=== PATIENT | female | born 1955 | race Caucasian/White ===

== ENCOUNTER 2020-11-12 09:58 | Emergency (ER) | payer MEDICARE, MEDICAID, SELFPAY ==
[2020-11-12 10:06] VITALS: BP 172/88; PULSE 69; RESP 16; TEMP 35.8; O2SAT 98; BMI 38.7
--- NOTE | 2020-11-12 10:07 | XRR_ITS ---
PROCEDURE INFORMATION: Exam: XR Left Foot Complete Exam date and time: 11/12/2020 10:10 AM Age: 65 years old Clinical indication: Injury or trauma; Fall; Sprain or strain; Foot; Left; Additional info: Fall left foot pain TECHNIQUE: Imaging protocol: XR Left foot. Views: 3 or more views. COMPARISON: No relevant prior studies available. FINDINGS: The exact location of the patient's symptoms are not known at the time of dictation. Bones/joints: No acute bony injury or malalignment in the visualized left foot. Calcaneal spur. Soft tissues: Mild soft tissue swelling. No radiopaque foreign body. XR/XR foot LT min 3V* [id number] IMPRESSION: No acute bony injury or malalignment in the visualized left foot.
--- NOTE | 2020-11-12 10:19 | W.ED.EXTPRO ---
HPI - Extremity Problem General: Chief complaint: Extremity Injury, Lower Stated complaint: FALL, PAIN IN LEFT FOOT Time Seen by Provider: 11/12/20 10:06 Source: patient Mode of arrival: wheelchair Limitations: no limitations History of Present Illness: HPI Narrative: 65-year-old female patient presents to the emergency department with left foot pain status post fall. She reports tripped and rolled her left foot last night. She reports pain is increased this morning. She is brought to the emergency room with her daughter. She denies any further injuries, denies hitting her head or complaints of neck pain upon exam. MD Complaint: extremity pain (left foot) Pain Consistency: intermittent Location: left and lower extremity Quality: aching and dull Radiation: none Relieving factors: immobilization and rest Exacerbating factors: weight bearing and walking Associated symptoms: Reports no associated symptoms; Deny chest pain, fever(s) or rash Review of Systems General: Reports: 10 or more systems reviewed and unremarkable except in HPI and below Const: Denies: fever(s), chills or diaphoresis Eyes: Denies: blurry vision or eye redness ENMT: Denies: throat pain, dental pain or disequilibrium Card: Denies: chest pain, palpitations or irregular heart rhythm Resp: Denies: dyspnea, productive cough, non-productive cough or wheezing GI: Denies: abdominal pain, nausea or vomiting : Denies: difficulty voiding or dysuria Musc: Reports: extremity pain (left lateral foot); Denies: neck pain or back pain Skin/Breast: Denies: rash or pruritus Neuro: Denies: headache(s), weakness in extremities or behavioral changes Psych: Denies: anxiety or depression Tin/Lymph: Denies: easy bruising Physical Exam Const: COMMON NORMALS: no acute distress, patient oriented x3, healthy appearing and alert GENERAL APPEARANCE: cooperative, comfortable and well hydrated HENMT: COMMON NORMALS: normocephalic, Normal external nose present and moist oral mucous membranes HEAD & SCALP: normocephalic NOSE: Normal external nose present Eye: COMMON NORMALS: Equal, round and reactive pupils present and EOMs intact bilaterally GENERAL EYE: appearance normal, both eyes and all related structures PUPIL: Yes Equal, round and reactive pupils present Neck/C-Spine: COMMON NORMALS: full ROM, no lymphadenopathy and supple GENERAL: Yes normal visual inspection and Yes trachea midline CERVICAL SPINE: Yes cervical ROM normal, No pain with cervical ROM, No Cervical spine tenderness and No Paracervical muscle tenderness Lymph: LYMPHATIC: no lymphadenopathy noted Chest: COMMONS NORMALS: normal inspection of the chest Resp: COMMON NORMALS: normal respiratory effort and clear to auscultation bilaterally AUSCULTATION: clear to auscultation bilaterally Cardio: COMMON NORMALS: regular rhythm, S1 normal heart sound present and S2 normal heart sound present RHYTHM: regular rhythm HEART SOUNDS: S1 normal heart sound present and S2 normal heart sound present GI: COMMON NORMALS: Soft to palpation and non-tender INSPECTION: Yes normal to inspection PALPATION: Yes Soft to palpation : COMMON NORMALS: Yes no CVA tenderness BLADDER/KIDNEY EXAM: Yes no CVA tenderness Back/Pelvis: COMMON NORMALS: no CVA tenderness and thoracic and lumbar spine normal to inspection Extremity: COMMON NORMALS: normal to inspection, full ROM and capillary refill normal GENERAL: Yes normal exam except as noted LEFT LOWER EXTREMITY: Yes foot & digits Left foot and digits: Yes inspection (slight edema to the lateral foot), Yes palpation (pain to the proximal left lateral foot), Yes ROM (full dorsiflexion and extension left ankle and foot) and Yes neurovascular exam (distally intact) Neuro: COMMON NORMALS: patient oriented x3 and no focal motor deficits SENSORIUM/ORIENTATION: Yes alert Psych: COMMON NORMALS: mental status grossly normal, Normal thought process present and cooperative ACTIVITY/MOTOR BEHAVIOR: Yes appropriate eye contact THOUGHT PROCESS: Normal thought process present Skin: COMMON NORMALS: no rashes or lesions noted and turgor normal GENERAL SKIN EXAM: no rashes or lesions noted and turgor normal Procedures Orthopedic Splinting/Casting Injury #1: Lower Extremity Injury Location: lower leg Lower Extremity Immobilizer: posterior splint and Eliseo wrap Other Orthopedic Equipment: crutches Course ED course: 65-year-old female patient presents to the emergency department with left lateral foot pain after sustaining a fall last night. She reports pain is increased this morning. Point tenderness to the left lateral base MTP, fifth, question small avulsion fracture, radiology interpretation did not appreciate fracture, splint placed patient reports improvement with pain. Advised continued follow-up with Dr. Lindquist, podiatry this week. Vital Signs: Vital signs: Vital Signs Temperature 96.5 F L 11/12/20 10:06 Pulse Rate 69 12/26/20 10:06 Respiratory Rate 16 11/12/20 10:06 Blood Pressure 172/88 11/12/20 10:06 Pulse Oximetry 98 11/12/20 10:06 MDM - Extremity (Nontraumatic) Imaging Data^: Xray Ortho: My impression: Fifth MTP, base avulsion fracture, radiology interpretation pending. Discharge Plan Discharge Patient Disposition: Home Clinical Impression: Foot fracture, left Qualifiers: Encounter type: initial encounter Fracture type: closed Qualified Code(s): S92.902A - Unspecified fracture of left foot, initial encounter for closed fracture Metatarsal bone fracture Qualifiers: Encounter type: initial encounter Metatarsal bone: fifth Fracture type: closed Fracture alignment: nondisplaced Laterality: left Qualified Code(s): S92.355A - Nondisplaced fracture of fifth metatarsal bone, left foot, initial encounter for closed fracture Condition: Stable Discharge Orders: Discharge ED (Routine); Ordered 11/12/20 Ordered By: Lyla Nolasco Referrals: Malathi Ash PA [Primary Care Provider] - Discharge Diet: Usual diet Discharge Activity: Limit activity as instructed Patient Instructions: Fractures - Metatarsal, Crutch Instructions (ED), Foot Fracture in Adults (ED), Splint Care (ED) Activity Restrictions/Additional Instructions: Keep left lower extremity elevated to help with swelling and pain, cool compresses will help with pain and swelling, never apply ice directly to the skin. instructional support services director will be contacting you with an appointment for orthopedic specialty/podiatry. Postop shoe will help with pain and swelling, limit weightbearing to the left lower extremity until follow-up with podiatry. May take Tylenol/ibuprofen as needed for pain Coding Level of Care Code ED Manager Ui for Chg Fwd Exam Comprehensive
[2020-11-12] MEDS: acetaminophen 500 mg Tablet 1000 MG PO (10:40)
[2020-11-12 11:03] VITALS: BP 151/83; PULSE 72; RESP 18; O2SAT 98
--- NOTE | 2020-11-14 08:22 | DCPLANNER ---
correctional counselor/case manager had message to schedule a follow up appointment for patient with ortho. correctional counselor/case manager called the ortho clinic, spoke with Madie, gave clinic patients information. correctional counselor/case manager was told that patients information would be printed and reviewed. Clinic will call patient with appointment information.
--- NOTE | 2020-11-16 13:56 | DCPLANNER ---
Patient had a follow up appointment scheduled for 11.15.20 with ortho - patient did attend the appointment.
== END 2020-11-12 11:07 | disposition home or self-care (01) ==
PROVIDERS: Emergency Provider Nurse Practitioner Family; PCP Physician Assistant
DX: S92.355A Nondisplaced fracture of fifth metatarsal bone, left foot, initial encounter for closed fracture (principal); X50.1XXA Overexertion from prolonged static or awkward postures, initial encounter
CPT/HCPCS: 12345; 29515; 73630; 99281; 99283; E0114

== ENCOUNTER → 2020-12-06 14:27 | Outpatient (BNVA) | payer MEDICARE, MEDICAID, SELFPAY | PROVIDERS: PCP Physician Assistant; Visit Provider Orthopaedic Surgery | DX: S93.402A Sprain of unspecified ligament of left ankle, initial encounter (principal); X58.XXXA Exposure to other specified factors, initial encounter; M20.12 Hallux valgus (acquired), left foot; M19.072 Primary osteoarthritis, left ankle and foot | CPT/HCPCS: 73630 ==

== ENCOUNTER 2022-09-02 19:24 | Emergency (ER) | payer MEDICARE, MEDICAID, SELFPAY ==
[2022-09-02 19:30] VITALS: BP 194/81; PULSE 68; RESP 18; TEMP 36.6; O2SAT 96; BMI 40.8
--- NOTE | 2022-09-02 19:49 | CTR_ITS ---
PROCEDURE INFORMATION: Exam: CT Head Without Contrast Exam date and time: 09/02/2022 8:43 PM Age: 67 years old Clinical indication: Pain; Headache TECHNIQUE: Imaging protocol: Computed tomography of the head without contrast. Radiation optimization: All CT scans at this facility use at least one of these dose optimization techniques: automated exposure control; mA and/or kV adjustment per patient size (includes targeted exams where dose is matched to clinical indication); or iterative reconstruction. COMPARISON: MR head wo/w con [id number] 12/08/2015 10:52 AM RADIATION DOSE METRICS: Total DLP (mGy-cm): 1148.49 FINDINGS: Brain: Normal. No hemorrhage. Unremarkable white matter. No mass effect. Cerebral ventricles: No ventriculomegaly. Paranasal sinuses: Visualized sinuses are unremarkable. No fluid levels. Pneumatized middle turbinates. Mastoid air cells: Visualized mastoid air cells are well aerated. Bones/joints: No acute findings. Soft tissues: Unremarkable. CT/CT head wo con* [id number] IMPRESSION: No acute intracranial abnormality.
[2022-09-02 20:13] LABS: Add Urine Microscopic? YES; Bilirubin Urine 1+ (Negative); Blood Urine 2+ (Negative); Glucose Urine UA Norm (Normal); Ketones Urine Negative (Negative); Leukocyte Esterase Urine 2+ (Negative); Nitrate Urine Negative (Negative); Protein Urine Neg (Negative); Urine Appearance Clear (CLEAR); Urine Color Yellow (Yellow); Urobilinogen Urine Neg (Negative); pH Urine 5 (5-7)
[2022-09-02 20:15] LABS: Add Urine Culture? No; Bacteria Urine TRACE /hpf; Mucus Urine TRACE /hpf; Squamous Epithelial Cell Urine 15-25 /hpf (0-5)
--- NOTE | 2022-09-02 20:40 | CTR_ITS ---
PROCEDURE INFORMATION: Exam: CT Thoracic Spine Without Contrast Exam date and time: 09/02/2022 8:48 PM Age: 67 years old Clinical indication: Injury or trauma; Fall; Blunt trauma (contusions or hematomas) TECHNIQUE: Imaging protocol: Computed tomography of the thoracic spine without contrast. Radiation optimization: All CT scans at this facility use at least one of these dose optimization techniques: automated exposure control; mA and/or kV adjustment per patient size (includes targeted exams where dose is matched to clinical indication); or iterative reconstruction. COMPARISON: CT cervical spin wo con* [id number] 09/02/2022 8:43 PM RADIATION DOSE METRICS: Total DLP (mGy-cm): 946.61 FINDINGS: Bones/joints: No acute fracture. Normal alignment. T1-T2: No significant disc protrusion. No severe spinal canal stenosis. No significant neural foraminal narrowing. T2-T3: No significant disc protrusion. No severe spinal canal stenosis. No significant neural foraminal narrowing. T3-T4: No significant disc protrusion. No severe spinal canal stenosis. No significant neural foraminal narrowing. T4-T5: No significant disc protrusion. No severe spinal canal stenosis. No significant neural foraminal narrowing. T5-T6: No significant disc protrusion. No severe spinal canal stenosis. No significant neural foraminal narrowing. T6-T7: No significant disc protrusion. No severe spinal canal stenosis. No significant neural foraminal narrowing. T7-T8: No significant disc protrusion. No severe spinal canal stenosis. No significant neural foraminal narrowing. T8-T9: No significant disc protrusion. No severe spinal canal stenosis. No significant neural foraminal narrowing. T9-T10: No significant disc protrusion. No severe spinal canal stenosis. No significant neural foraminal narrowing. T10-T11: No significant disc protrusion. No severe spinal canal stenosis. No significant neural foraminal narrowing. T11-T12: No significant disc protrusion. No severe spinal canal stenosis. No significant neural foraminal narrowing. T12-L1: No significant disc protrusion. No severe spinal canal stenosis. No significant neural foraminal narrowing. Heart: Coronary artery atherosclerotic calcifications. Lungs: Emphysematous changes. CT/CT thoracic spin wo con* [id number] IMPRESSION: 1. Negative for fracture or dislocation. 2. Emphysematous changes. 3. Coronary artery atherosclerotic calcifications.
--- NOTE | 2022-09-02 20:40 | CTR_ITS ---
PROCEDURE INFORMATION: Exam: CT Cervical Spine Without Contrast Exam date and time: 09/02/2022 8:43 PM Age: 67 years old Clinical indication: Injury or trauma; Fall; Blunt trauma TECHNIQUE: Imaging protocol: Computed tomography of the cervical spine without contrast. Radiation optimization: All CT scans at this facility use at least one of these dose optimization techniques: automated exposure control; mA and/or kV adjustment per patient size (includes targeted exams where dose is matched to clinical indication); or iterative reconstruction. COMPARISON: MR head wo/w con [id number] 12/08/2015 10:52 AM RADIATION DOSE METRICS: Total DLP (mGy-cm): 256.4 FINDINGS: Bones/joints: No acute fracture. Normal alignment. No significant disc protrusion. No severe spinal canal stenosis. Lungs: Minimal paraseptal emphysema. Soft tissues: Unremarkable. CT/CT cervical spin wo con* [id number] IMPRESSION: No acute findings.
--- NOTE | 2022-09-02 20:42 | ED_ITS ---
HPI - Headache General: Chief Complaint: Headache Stated Complaint: head pain, dizzy Time Seen by Provider: 09/02/22 20:21 Source: patient Mode of arrival: ambulatory Limitations: no limitations History of Present Illness: 67-year-old female who had a fall on Saturday. She states that she did hit her head she is been having headache along with neck pain upper back pain since then. Patient states she had some slight unsteadiness of her gait denies any vision disturbances denies any worsening improving factors. She has not seen one since the fall. Associated symptoms: Deny chest pain, fever(s), nausea, rash or vomiting Review of Systems Const: Denies: fever(s), chills, body aches or change in appetite Eyes: Denies: blurry vision or eye discomfort ENMT: Denies: throat pain or dental pain Card: Denies: chest pain Resp: Denies: dyspnea GI: Denies: abdominal pain, nausea, vomiting or diarrhea : Denies: dysuria Musc: Reports: neck pain and back pain Skin/Breast: Denies: rash Neuro: Reports: headache(s) Psych: Denies: depression Tin/Lymph: Denies: easy bruising All/Imm: Denies: urticaria PFSH ED PFSH: Family History Sister Diabetes Brother Diabetes Social History Smoking and tobacco status: never smoked Alcohol intake: current Alcohol intake frequency: holidays/special occasions only Alcohol type: wine Physical Exam Const: COMMON NORMALS: no acute distress, patient oriented x3 and healthy appearing HENMT: COMMON NORMALS: normocephalic and atraumatic HEAD & SCALP: normoc ephalic and atraumatic Eye: COMMON NORMALS: Equal, round and reactive pupils present and EOMs intact bilaterally PUPIL: Yes Equal, round and reactive pupils present Neck/C-Spine: OTHER: c spine tenderness Chest: COMMONS NORMALS: normal inspection of the chest and normal palpation of entire chest wall Resp: COMMON NORMALS: normal respiratory effort, No retractions, No use of accessory muscles and clear to auscultation bilaterally AUSCULTATION: clear to auscultation bilaterally Cardio: COMMON NORMALS: regular rate, regular rhythm and No murmurs present (Cardio) RATE: regular rate RHYTHM: regular rhythm GI: COMMON NORMALS: Normal to inspection, nondistended, normoactive bowel sounds present, Soft to palpation, non-tender and no masses PALPATION: Yes Soft to palpation Back/Pelvis: OTHER: tenderness over t spine Extremity: COMMON NORMALS: normal to inspection and full ROM Neuro: COMMON NORMALS: patient oriented x3, moves all extremities and no focal motor deficits Psych: COMMON NORMALS: mental status grossly normal, Normal thought process present and cooperative THOUGHT PROCESS: Normal thought process present Skin: COMMON NORMALS: no rashes or lesions noted and no wounds GENERAL SKIN EXAM: no rashes or lesions noted Course Vital Signs: Vital signs: Vital Signs Temperature 97.9 F 09/02/22 19:30 Pulse Rate 66 09/02/22 21:06 Respiratory Rate 16 09/02/22 21:06 Blood Pressure 176/92 09/02/22 21:06 Pulse Oximetry 97 09/02/22 21:06 Oxygen Delivery Me thod 09/02/22 19:30 MDM - Headache Medical Decision Making Patient presents with close head injury likely causing her headache head CT here is normal she is able ambulate here without any difficulty. She has had some slight hypertension here she is to take a log and follow-up with PCP in 5 to 7 days she is return if worsening she understands agrees to plan. Lab Data : 09/02/22 19:50 09/02/22 19:[address] 09/02/22 19:49 IMPRESSION: No acute intracranial abnormality. Cervical Spine CT 09/02/22 20:40 IMPRESSION: No acute findings. Thoracic Spine CT 09/02/22 20:40 IMPRESSION: 1. Negative for fracture or dislocation. 2. Emphysematous changes. 3. Coronary artery atherosclerotic calcifications. Laboratory Results WBC Cancelled 09/02/22 19:50 Corrected WBC Cancelled 09/02/22 19:50 RBC Cancelled 09/02/22 19:50 Hgb Cancelled 09/02/22 19:50 Hct Cancelled 09/02/22 19:50 MCV Cancelled 09/02/22 19:50 MCH Cancelled 09/02/22 19:50 MCHC Cancelled 09/02/22 19:50 RDW Cancelled 09/02/22 19:50 Plt Count Cancelled 09/02/22 19:50 MPV Cancelled 09/02/22 19:50 Gran % Cancelled 09/02/22 19:50 Neut % (Auto) Cancelled 09/02/22 19:50 Lymph % (Auto) Cancelled 09/02/22 19:50 [place] % (Auto) Cancelled 09/02/22 19:50 Eos % (Auto) Cancelled 09/02/22 19:50 Baso % (Auto) Cancelled 09/02/22 19:50 Neut # (Auto) Cancelled 09/02/22 19:50 Lymph # (Auto) Cancelled 09/02/22 19:50 [place] # (Auto) Cancelled 09/02/22 19:50 Eos # (Auto) Cancelled 09/02/22 19:50 Baso # (Auto) Cancelled 09/02/22 19:50 Absolute Gran (auto) Cancelled 09/02/22 19:50 Nucleated RBC % (auto) Cancelled 09/02/22 19:50 Nucleated RBCs # Cancelled 09/02/22 19:50 Urine Color Yellow (Yellow) 09/02/22 19:50 Urine Appearance Clear (CLEAR) 09/02/22 19:50 Urine pH 5 (5-7) 09/02/22 19:50 Ur Specific [place] 1.030 (1.005-1.030) 09/02/22 19:50 Urine Protein Neg (Negative) 09/02/22 19:50 Urine Glucose (UA) Norm (Normal) 09/02/22 19:50 Urine Ketones Negative (Negative) 09/02/22 19:50 Urine Blood 2+ (Negative) H 09/02/22 19:50 Urine Nitrate Negative (Negative) 09/02/22 19:50 Urine Bilirubin 1+ (Negative) H 09/02/22 19:50 Urine Urobilinogen Neg mg/dL (Negative) 09/02/22 19:50 Ur Leukocyte Esterase 2+ (Negative) H 09/02/22 19:50 Urine RBC 5-10 /hpf (0-2) H 09/02/22 19:50 Urine WBC 10-15 /hpf (0-5) H 09/02/22 19:50 Ur Squamous Epith Cells 15-25 /hpf (0-5) H 09/02/22 19:50 Amorphous Sediment Not Reportable 09/02/22 19:50 Urine Bacteria Trace /hpf (NONE) 09/02/22 19:50 Urine Mucus Trace /hpf 09/02/22 19:50 Discharge Plan Discharge Patient Disposition: Home Clinical Impression: Fall, Closed head injury Condition: Stable Prescriptions: New Naprosyn 500 mg tablet 500 mg PO BID PRN (Reason: pain) Qty: 20 0RF No Action (DME) CAM boot See Rx Instructions .Route .MEDSUPPLY Qty: 1 0RF Rx Instructions: As directed Discharge Orders: Discharge ED (Routine); Ordered 09/02/22 Ordered By: Baljinder Perez Referrals: Malathi Ash PA [Primary Care Provider] - Discharge Diet: Advance as tolerated Discharge Activity: Resume usual activity Patient Instructions: Head Injury (ED) Coding Level of Care Code ED Technical Director for Maryanne Fwjenna Exam Comprehensive
[2022-09-02 21:02] VITALS: BP 171/94
[2022-09-02] MEDS: cloNIDine 0.1 mg Tablet PO (21:02)
[2022-09-02] MEDS: HYDROcodone-acetaminophen 5-325 mg Tablet 1 TAB PO (21:03)
[2022-09-02 21:06] VITALS: BP 176/92; PULSE 66; RESP 16; O2SAT 97
== END 2022-09-02 21:55 | disposition home or self-care (01) ==
PROVIDERS: Emergency Provider Emergency Medicine; PCP Physician Assistant
DX: S09.8XXA Other specified injuries of head, initial encounter (principal); W19.XXXA Unspecified fall, initial encounter
CPT/HCPCS: 70450; 72125; 72128; 81001; 85025; 99285

== ENCOUNTER 2022-09-05 16:56 | Emergency (ER) | payer MEDICARE, MEDICAID, SELFPAY ==
[2022-09-05 17:12] VITALS: BP 196/85; PULSE 65; RESP 16; TEMP 36.6; O2SAT 97; BMI 39.4
--- NOTE | 2022-09-05 17:23 | XRR_ITS ---
PROCEDURE INFORMATION: Exam: XR Left Ribs with PA Chest Exam date and time: 09/05/2022 5:32 PM Age: 67 years old Clinical indication: Chest wall pain; Left; Patient HX: Fall on Saturday severe lt rib pain TECHNIQUE: Imaging protocol: Radiologic exam of the Left ribs with PA chest. Views: 3 views COMPARISON: CR XR chest 1V [id number] 08/18/2018 8:10 AM FINDINGS: Lungs: Unremarkable. No consolidation. Pleural spaces: Unremarkable. No pleural effusion. No pneumothorax. Heart/Mediastinum: Unremarkable. No cardiomegaly. Bones/joints: No evidence of rib fracture. Visualized osseous structures are intact. XR/XR ribs LT mn 3V w CXR1V [id number] IMPRESSION: No acute findings.
[2022-09-05] MEDS: HYDROcodone-acetaminophen 5-325 mg Tablet 1 TAB PO (17:27)
--- NOTE | 2022-09-06 12:21 | W.ED.FALL ---
HPI - Fall General: Chief Complaint: Fall Stated Complaint: Fall, possible broken rib Time Seen by Provider: 09/05/22 17:20 History of Present Illness: 67 yo female patient presents to ER with left sided rib pain post fall 1 week ago. Pt states the pain has not improved. Pt states it only hurts when she moves or takes a deep breath. Pt denies any CP or SOB. pt denies any other injury or trauma. Associated symptoms-after fall: Denies abdominal pain, chest pain, confusion, difficulty walking, headache(s), hematuria, lightheadedness, neck pain or vertigo Review of Systems Const: Denies: fever(s), chills, body aches, change in appetite, change in weight, fatigue, malaise or diaphoresis Eyes: Denies: change in vision, blurry vision, blind spots, photophobia, eye discomfort, eye discharge, eye redness, floaters or seeing flashes ENMT: Denies: throat pain, uvular edema, enlarged tonsils, odynophagia, hoarseness, mouth pain, swelling of lips/tongue, oral sores, bleeding gums, dental pain, dry mouth, ear or mastoid pain, ear discharge, change in hearing, tinnitus, disequilibrium, nasal discharge, nasal congestion, post nasal drip or sinus pain Card: Denies: chest pain, palpitations, irregular heart rhythm, edema, swelling of feet/ankles, lightheadedness, syncope, pre-syncope, dyspnea on exertion, orthopnea, leg pain with exertion or acrocyanosis Resp: Denies: productive cough, non-productive cough, wheezing, stridor, pain on inspiration, change in phlegm color, hemoptysis or chest congestion GI: Denies: abdominal pain, nausea, vomiting, hematemesis, dysphagia, diarrhea, constipation, GI cramping, change in bowel habits or rectal pain : Denies: flank pain, difficulty voiding, dysuria, urinary frequency, urinary urgency, urinary hesitancy or hematuria Musc: Denies: neck pain, back pain, extremity pain, extremity swelling, joint pain, joint swelling, joint redness, joint warmth or deformity Skin/Breast: Denies: rash, pruritus, erythema, sores, new lesions, changes in skin color or dry skin Neuro: Denies: headache(s), numbness in extremities, weakness in extremities, sensory changes, lack of coordination, difficulty walking, frequent falls, dizziness, vertigo, confusion, behavioral changes, Slurred speech present, difficulty communicating thoughts or seizure-like activity Psych: Denies: anxiety, depression, suicidal ideation or homicidal ideation Endo: Denies: polyuria, polydipsia, tired all the time, cold intolerance, excessive sweating, flushing, hot flashes or heat intolerance Tin/Lymph: Denies: easy bruising, easy bleeding, petechiae, purpura, enlarged lymph nodes or tender lymph nodes All/Imm: Denies: urticaria, throat swelling, tongue swelling, facial swelling, acute wheezing or itchy eyes PFSH ED PFSH: Family History Sister Diabetes Brother Diabetes Social History Smoking and tobacco status: never smoked Alcohol intake: current Alcohol intake frequency: holidays/special occasions only Alcohol type: wine Physical Exam Const: COMMON NORMALS: no acute distress, patient oriented x3, healthy appearing, alert and well nourished GENERAL APPEARANCE: cooperative, comfortable, well kempt and well developed; not ill appearing ORIENTATION/CONSCIOUSNESS: Yes awake, Yes oriented to person, Yes oriented to place and Yes oriented to time HENMT: COMMON NORMALS: normocephalic, atraumatic, hearing grossly normal bilaterally, external ears normal, EAC's normal, TM's normal bilaterally, Normal external nose present, Normal nasal mucous membranes and turbinates present and moist oral mucous membranes HEAD & SCALP: normal to inspection, normocephalic and atraumatic FACE & SINUS: normal facial exam, sinuses nontender and face symmetric NOSE: Normal external nose present, Normal nares present, Normal nasal mucous membranes and turbinates present, No nasal discharge present and Abnormal external nose present EXTERNAL EAR: Yes external ears normal and Yes mastoids normal EXTERNAL AUDITORY CANAL: EAC's normal TYMPANIC MEMBRANE: TM's normal bilaterally MOUTH: Normal oral and palatal mucosa present, lip normal, tongue normal and Normal salivary glands and ducts present THROAT: no uvular edema Eye: COMMON NORMALS: Equal, round and reactive pupils present, EOMs intact bilaterally, conjunctivae normal and no scleral icterus GENERAL EYE: appearance normal, both eyes and all related structures EYELID: eyelids normal CONJUNCTIVA: Yes conjunctivae normal SCLERA: sclerae normal CORNEA: Yes corneas normal PUPIL: Yes Equal, round and reactive pupils present Neck/C-Spine: COMMON NORMALS: full ROM, no lymphadenopathy, supple, no meningeal signs, no JVD and Thyroid normal GENERAL: Yes normal visual inspection and Yes trachea midline THYROID: Thyroid normal CERVICAL SPINE: Yes cervical ROM normal Lymph: LYMPHATIC: no lymphadenopathy noted and no lymphedema noted Chest: COMMONS NORMALS: normal inspection of the chest Resp: COMMON NORMALS: normal respiratory effort, No retractions, No use of accessory muscles and clear to auscultation bilaterally EFFORT & INSPECTION: Yes able to speak in complete sentences and Yes symmetric chest movement AUSCULTATION: clear to auscultation bilaterally Cardio: COMMON NORMALS: no JVD, regular rate and regular rhythm RATE: regular rate RHYTHM: regular rhythm GI: COMMON NORMALS: Normal to inspection, nondistended, normoactive bowel sounds present, Soft to palpation, non-tender, No hepatosplenomegaly present, no masses and no bruits INSPECTION: Yes normal to inspection AUSCULTATION: Yes normoactive bowel sounds PALPATION: Yes Soft to palpation and Yes No hepatosplenomegaly present PERCUSSION: normal to percussion RECTAL EXAM: deferred : COMMON NORMALS: Yes no CVA tenderness BLADDER/KIDNEY EXAM: Yes no CVA tenderness Back/Pelvis: COMMON NORMALS: no CVA tenderness, thoracic and lumbar spine normal to inspection, no thoracic nor lumbar tenderness, thoraco-lumbar ROM normal and straight leg raise negative bilaterally THORACIC SPINE/UPPER BACK: Yes normal to inspection LUMBAR SPINE/LOWER BACK: Yes normal to inspection Extremity: COMMON NORMALS: normal to inspection, full ROM and capillary refill normal GENERAL: Yes normal exam except as noted Neuro: COMMON NORMALS: patient oriented x3, CN's II-XII intact bilaterally, moves all extremities, no focal motor deficits, no sensory deficits noted, deep tendon reflexes 2+ bilaterally and gait normal SENSORIUM/ORIENTATION: Yes alert, Yes oriented to person, Yes oriented to place and Yes oriented to time MENINGEAL SIGNS: Yes no meningeal signs CRANIAL NERVES: Yes CN normal except as noted SPEECH: speech normal GAIT: Yes Normal gait present SENSORY EXAM: Yes extremities MOTOR EXAM: 5/5 motor strength present throughout Psych: COMMON NORMALS: mental status grossly normal, Normal thought process present, cooperative, normal affect, speech normal, activity/motor behavior normal, denies hallucinations, denies homicidal ideation and denies suicidal ideation APPEARANCE: Yes grossly normal and Yes well kempt ATTITUDE: Yes calm ACTIVITY/MOTOR BEHAVIOR: Yes appropriate eye contact SPEECH: Yes normal speech THOUGHT PROCESS: Normal thought process present THOUGHT CONTENT: Yes Normal thought content present ATTENTION/CONCENTRATION: Yes attention grossly intact MEMORY/COGNITION: Yes memory grossly intact INSIGHT: Good insight present (Psych) JUDGEMENT: Good judgement present (Psych) Skin: COMMON NORMALS: no rashes or lesions noted, no wounds, turgor normal, no jaundice, no petechiae and no mottling GENERAL SKIN EXAM: no rashes or lesions noted and turgor normal Course Vital Signs: Vital signs: Vital Signs Temperature 97.8 F 09/05/22 17:12 Pulse Rate 65 09/05/22 17:12 Respiratory Rate 16 09/05/22 17:12 Blood Pressure 196/85 09/05/22 17:12 Pulse Oximetry 97 09/05/22 17:12 Oxygen Delivery Me thod 09/05/22 17:12 MDM - Fall Medical Decision Making Patient is well appearing non toxic and in no acute distress. 67 yo female patient presents to ER with left sided rib pain post fall 1 week ago. Pt states the pain has not improved. Pt states it only hurts when she moves or takes a deep breath. Pt denies any CP or SOB. pt denies any other injury or trauma. chest and rib xray are negative for any acute findings. I have advised patient to splint area of pain and take deep breaths throughout the day. I advised patient on home care as well as return precautions Lab Data Radiology Impressions Ribs X-Ray 09/05/22 17:23 IMPRESSION: No acute findings. Discharge Plan Discharge Patient Disposition: Home Clinical Impression: Contusion of rib Condition: Stable Prescriptions: No Action (DME) CAM boot See Rx Instructions .Route .MEDSUPPLY Qty: 1 0RF Rx Instructions: As directed Naprosyn 500 mg tablet 500 mg PO BID PRN (Reason: pain) Qty: 20 0RF Discharge Orders: Discharge ED (Routine); Ordered 09/05/22 Ordered By: Isabella Mendoza Referrals: Malathi Ash PA [Primary Care Provider] - Discharge Diet: Advance as tolerated Discharge Activity: Increase activity as tolerated Patient Instructions: Opioid Safety, Pain Management Activity Restrictions/Additional Instructions: Splint area of pain with pillow moist heat to area Return to ER with joce worsening of pain, shortness of breath, fever or chest pain Coding Level of Care Code ED 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
== END 2022-09-05 18:32 | disposition home or self-care (01) ==
PROVIDERS: Emergency Provider Registered Nurse; PCP Physician Assistant
DX: S20.212A Contusion of left front wall of thorax, initial encounter (principal); W19.XXXA Unspecified fall, initial encounter
CPT/HCPCS: 71101; 99283

== ENCOUNTER 2023-01-18 20:59 | Emergency (ER) | payer MEDICARE, MEDICAID, SELFPAY ==
[2023-01-18 21:06] VITALS: BP 189/93; PULSE 75; RESP 18; TEMP 36.5; O2SAT 96
--- NOTE | 2023-01-18 22:26 | ED_ITS ---
HPI - Extremity Problem General: Chief complaint: Extremity Problem,Nontraumatic Stated complaint: right leg pain Time Seen by Provider: 01/18/23 22:14 History of Present Illness: 67-year-old female comes in today for complaints of right lower extremity pain. Patient reports pain has been unbearable at night for the last month. Patient reports during the day she is able to tolerate the pain and get around without difficulty. At night when she lays down she has throbbing type pain in her right lower extremity that extends from the dorsal thigh down into the calf. Patient has taken some acetaminophen and ibuprofen and naproxen with minimal to no relief of pain. Patient reported a history of sciatica. Patient states this pain does not remind her of her sciatica. Patient reports no chronic medical problems and takes no routine medications. Patient does use [id number] supplements. Associated symptoms: Deny chest pain or fever(s) Review of Systems General: Reports: 10 or more systems reviewed and unremarkable except in HPI and below Const: Denies: fever(s) Card: Denies: chest pain Resp: Denies: dyspnea Musc: Reports: extremity pain PFSH ED PFSH: Family History Sister Diabetes Brother Diabetes Social History Smoking and tobacco status: never smoked Alcohol intake: current Alcohol intake frequency: holidays/special occasions only Alcohol type: wine Physical Exam Const: COMMON NORMALS: alert HENMT: COMMON NORMALS: normocephalic HEAD & SCALP: normocephalic Neck/C-Spine: COMMON NORMALS: full ROM Resp: COMMON NORMALS: normal respiratory effort and clear to auscultation bilaterally AUSCULTATION: clear to auscultation bilaterally Cardio: COMMON NORMALS: regular rate and regular rhythm RATE: regular rate RHYTHM: regular rhythm Back/Pelvis: THORACIC SPINE/UPPER BACK: No thoracic spinal tenderness LUMBAR SPINE/LOWER BACK: No lumbar spinal tenderness and No paraspinal muscle tenderness Extremity: NARRATIVE EXTREMITY EXAM: Normal range of motion of the extremity, mild increase in size as compared to the left of the right lower extremity. RIGHT LOWER EXTREMITY: Yes lower leg (Posterior calf pain) Neuro: SENSORIUM/ORIENTATION: Yes alert Course Vital Signs: Vital signs: Vital Signs Temperature 97.7 F 01/18/23 21:06 Pulse Rate 59 L 01/18/23 23:14 Respiratory Rate 18 01/18/23 23:14 Blood Pressure 198/86 01/18/23 23:14 Pulse Oximetry 100 01/18/23 23:14 Oxygen Delivery Me thod 01/18/23 23:14 MDM - Extremity (Nontraumatic) Medical Decision Making Patient comes in today for complaints of right lower extremity pain worse over the last 1 to 2 months. Patient reports the pain is throbbing at times at night when she is trying to go to bed. Patient states during the day she is able to get around and the pain does not seem to be as worse. On exam the right leg does appear to be more larger than the left. Distal pulses and sensation are intact. Patient moves extremities well. Patient is weightbearing. Vital signs are normal except for some elevation of blood pressure. Differential diagnosis includes but not limited to peripheral neuropathy, sciatica, peripheral vascular disease, DVT. Ultrasound of the extremity ruled out DVT. No signs of serious illness or injury is noted at this time. Believe the patient may be suffering some from peripheral neuropathy although this was hard to diagnose in the ER, or may have some underlying peripheral vascular disease. Recommended patient follow-up with primary care for further evaluation and treatment. Patient was written for some tramadol to use at bedtime for pain. Patient reported understanding of care plan and need for follow-up or return to the ER. Lab Data Radiology Impressions Venous Duplex 01/18/23 22:27 IMPRESSION: No evidence of deep vein thrombosis. Discharge Plan Discharge Patient Disposition: Home Clinical Impression: Lower extremity pain, right Condition: Stable Prescriptions: New tramadol 50 mg tablet 50 mg PO DAILY PRN (Reason: pain (scale score 7-10)) Qty: 10 0RF No Action (DME) CAM boot See Rx Instructions .Route .MEDSUPPLY Qty: 1 0RF Rx Instructions: As directed Naprosyn 500 mg tablet 500 mg PO BID PRN (Reason: pain) Qty: 20 0RF Discharge Orders: Discharge ED (Routine); Ordered 01/18/23 Ordered By: Saurav Márquez Referrals: Malathi Ash PA [Primary Care Provider] - Discharge Diet: Usual diet Patient Instructions: Paresthesia (ED) Activity Restrictions/Additional Instructions: Follow-up with primary care in 3 to 5 days for recheck. Drink plenty of water with medication. Continue activity as tolerated. Use ice or heat for further pain relief. Return to ER for worsening symptoms such as high fever greater than 100.4, uncontrolled pain, or new concerns. 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
--- NOTE | 2023-01-18 22:27 | USR_ITS ---
PROCEDURE INFORMATION: Exam: US Duplex Right Lower Extremity Veins, Limited Exam date and time: 01/18/2023 10:40 PM Age: 67 years old Clinical indication: Swelling (edema) of limb; Lower extremity, right; Additional info: R/O dvt TECHNIQUE: Imaging protocol: Real-time duplex ultrasound of the right extremity with 2-D nichole scale, color Doppler flow and spectral waveform analysis including responses to compression and other maneuvers (when performed) with image documentation. Limited exam was focused on the right lower extremity veins. COMPARISON: No relevant prior studies available. FINDINGS: Right deep veins: Unremarkable. The common femoral, femoral, proximal profunda femoral and popliteal veins are patent without thrombus. Normal Doppler waveforms. Normal compressibility and/or augmentation response. Right superficial veins: Unremarkable. Saphenofemoral junction is patent without thrombus. Soft tissues: Unremarkable. US/[place] [id number] IMPRESSION: No evidence of deep vein thrombosis.
[2023-01-18 23:14] VITALS: BP 198/86; PULSE 59; RESP 18; O2SAT 100
[2023-01-18] MEDS: TRAMadol 50 mg Tablet PO (23:45)
== END 2023-01-18 23:49 | disposition home or self-care (01) ==
PROVIDERS: Emergency Provider Nurse Practitioner Family; PCP Physician Assistant
DX: M79.604 Pain in right leg (principal)
CPT/HCPCS: 93971; 99284

== ENCOUNTER 2025-03-19 10:40 | Emergency (ER) | payer MEDICARE, MEDICAID, SELFPAY ==
[2025-03-19 10:50] VITALS: BP 197/88; PULSE 65; RESP 18; TEMP 36.6; O2SAT 98; BMI 42.7
--- NOTE | 2025-03-19 10:58 | CT_ITS ---
WS: [id number] CT scan of the head, 03/19/2025 Clinical Data: fall Comparison: CT head, 09/02/2022 DLP: 999.[address] scans at [facility] use at least one of these dose optimization techniques: automated exposure control; mA and/or kV adjustment per patient size (includes targeted exams where dose is matched to clinical indication); or iterative reconstruction. Findings: The ventricular system is normal without shift. No recent infarct or hemorrhage is seen. There are no abnormal intracerebral masses. The cerebellum and brainstem are not remarkable. Bony windows of the skull and skull base show no fractures or erosions. The mastoid air cells, internal auditory canals, sella turcica, intraorbital contents, and paranasal sinuses are unremarkable. CT/CT head wo con* [id number] Impression: Negative CT scan of the head
--- NOTE | 2025-03-19 11:00 | ED_ITS ---
HPI - Weakness 2 General: Chief complaint: Weakness Stated complaint: head pressure/slight dizziness Time Seen by Provider: 03/19/25 10:53 Source: patient Mode of arrival: ambulatory Limitations: no limitations History of Present Illness: 69-year-old female states she fell 1 wee k ago and hit her head denies any loss conscious states that since then she has been having headaches along with feeling lightheaded. She denies any vertigo denies any difficulty walking states her headaches are moderate in nature rates it a 5 out of 10 denies any worse improved factors Associated symptoms: Reports headache(s); Denies chest pain, chills, fever(s), nausea or vomiting Review of Systems 2 Const: Denies: fever(s), chills, body aches or change in appetite ENMT: Denies: throat pain or dental pain Card: Denies: chest pain Resp: Denies: dyspnea GI: Denies: abdominal pain, nausea, vomiting or diarrhea Musc: Denies: neck pain or back pain Skin/Breast: Denies: rash Neuro: Reports: headache(s) PFSH ED 2 PFSH: Family History Sister Diabetes Brother Diabetes Social History Smoking and tobacco/nicotine status: never used tobacco/nicotine Alcohol intake: current Alcohol intake frequency: holidays/special occasions only Alcohol type: wine Physical Exam 2 Const: COMMON NORMALS: no acute distress, patient oriented x3 and healthy appearing HENMT: COMMON NORMALS: normocephalic and atraumatic HEAD & SCALP: n ormocephalic and atraumatic Eye: COMMON NORMALS: Equal, round and reactive pupils present and EOMs intact bilaterally PUPIL: Yes Equal, round and reactive pupils present OTHER: no nystagmus Neck/C-Spine: COMMON NORMALS: full ROM and supple Chest: COMMONS NORMALS: normal inspection of the chest Resp: COMMON NORMALS: normal respiratory effort, No retractions, No use of accessory muscles and clear to auscultation bilaterally AUSCULTATION: clear to auscultation bilaterally Cardio: COMMON NORMALS: regular rate, regular rhythm and No murmurs present (Cardio) RATE: regular rate RHYTHM: regular rhythm Extremity: COMMON NORMALS: normal to inspection and full ROM Neuro: COMMON NORMALS: patient oriented x3, moves all extremities and no focal motor deficits CRANIAL NERVES: Yes CN normal except as noted SPEECH: s peech normal GAIT: Yes Normal gait present Psych: COMMON NORMALS: mental status grossly normal, Normal thought process present and cooperative THOUGHT PROCESS: Normal thought process present Skin: COMMON NORMALS: no rashes or lesions noted and no wounds GENERAL SKIN EXAM: no rashes or lesions noted Course 2 Vital Signs: Vital signs: Vital Signs Temperature 97.9 F 03/19/25 10:50 Pulse Rate 64 03/19/25 11:34 Respiratory Rate 18 03/19/25 10:50 Blood Pressure 196/102 03/19/25 11:34 Pulse Oximetry 98 03/19/25 11:34 Oxygen Delivery Me thod Room Air 03/19/25 11:34 MDM - Weakness Medical Decision Making Patient presents with headache after a close head injury she has been well- appearing here said some lightheadedness no actual vertigo she is able to ambulate without any difficulty headache has improved after Toradol head CT shows no acute abnormality she is stable for discharge she is follow-up with PCP and return if worsening. Medical Records I reviewed the patient's medical records. Lab Data I reviewed the patient's lab results. 03/19/25 11:04 03/19/25 11:[address] 03/19/25 10:58 Impression: Negative CT scan of the head Laboratory Results WBC 8.26 10^3/uL (3.29-11.43) 03/19/25 11:04 RBC 4.58 10^6/uL (3.85-5.65) 03/19/25 11:04 Hgb 13.40 g/dL (11.27-16.99) 03/19/25 11:04 Hct 41.5 % (36-47) 03/19/25 11:04 MCV 90.6 fl (85-98) 03/19/25 11:04 MCH 29.3 pg (27-33) 03/19/25 11:04 MCHC 32.3 g/dL (30-55) 03/19/25 11:04 RDW 12.9 % (12.1-15.1) 03/19/25 11:04 Plt Count 188 10^3/cmm (157-399) 03/19/25 11:04 MPV 9.7 fL (7.4-10.4) 03/19/25 11:04 Neut % (Auto) 64.5 % 03/19/25 11:04 Lymph % (Auto) 28.3 % 03/19/25 11:04 [place] % (Auto) 5.2 % 03/19/25 11:04 Eos % (Auto) 1.0 % 03/19/25 11:04 Baso % (Auto) 0.5 % 03/19/25 11:04 Neut # (Auto) 5.33 10^3/uL (1.8-7.7) 03/19/25 11:04 Lymph # (Auto) 2.3 10^3/uL (0.8-4.8) 03/19/25 11:04 [place] # (Auto) 0.4 10^3/uL (0.2-0.9) 03/19/25 11:04 Eos # (Auto) 0.1 10^3/uL (0.0-0.8) 03/19/25 11:04 Baso # (Auto) 0.0 10^3/uL (0.0-0.1) 03/19/25 11:04 Nucleated RBC % (auto) 0 % 03/19/25 11:04 Nucleated RBCs # 0.0 /100WBC 03/19/25 11:04 Sodium 141 mmol/L (136-145) 03/19/25 11:04 Potassium 4.0 mmol/L (3.5-5.1) 03/19/25 11:04 Chloride 106 mmol/L (98-107) 03/19/25 11:04 Carbon Dioxide 28 mmol/L (22-29) 03/19/25 11:04 Anion Gap 11.0 (5-19) 03/19/25 11:04 BUN 17 mg/dL (8-23) 03/19/25 11:04 Creatinine 0.8 mg/dL (0.5-0.9) 03/19/25 11:04 GFR Calculation 71.3 mL/min (90-130) L 03/19/25 11:04 Glucose 118 mg/dL (65-115) H 03/19/25 11:04 Calculated Osmolality 295 mOsm/kg (285-295) 03/19/25 11:04 Calcium 8.8 mg/dL (8.5-10.5) 03/19/25 11:04 Total Bilirubin 0.4 mg/dL (0.15-1.2) 03/19/25 11:04 AST 23 U/L (0-32) 03/19/25 11:04 ALT 31 U/L (0-33) 03/19/25 11:04 Alkaline Phosphatase 95 U/L (35-105) 03/19/25 11:04 Total Protein 6.9 g/dL (6.6-8.7) 03/19/25 11:04 Albumin 3.8 g/dL (3.5-5.2) 03/19/25 11:04 Globulin 3.1 g/dL (1.3-4.6) 03/19/25 11:04 All radiology interpretation(s) finalized by discharge Discharge Plan Discharge Patient Disposition: Home Clinical Impression: Closed head injury, Headache Condition: Stable Prescriptions: New naproxen [Naprosyn] 500 mg tablet 500 mg PO BID PRN (Reason: pain) Qty: 20 0RF No Action (DME) CAM boot See Rx Instructions .Route .MEDSUPPLY Qty: 1 0RF Rx Instructions: As directed tramadol 50 mg tablet 50 mg PO DAILY PRN (Reason: pain (scale score 7-10)) Qty: 10 0RF Naprosyn 500 mg tablet 500 mg PO BID PRN (Reason: pain) Qty: 20 0RF Discharge Orders: Discharge ED (Routine); Ordered 03/19/25 Ordered By: Baljinder Perez Referrals: Malathi Ash PA [Primary Care Provider, [facility] [employer]] - 4-7 days Discharge Diet: Advance as tolerated Discharge Activity: Resume usual activity Patient Instructions: Head Injury (ED) Print Language: Tajik Coding Level of Care Code ED Bed Operator for Chg Fwd Related Data Previous Rx's ?Medication ?Instructions ?Recorded CAM boot #1 ea 11/15/20 naproxen 500 mg tablet (Naprosyn) 500 mg PO BID PRN pa in #20 tabs 09/02/22 tramadol 50 mg tablet 50 mg PO DAILY PRN pain (sca le 01/18/23 score 7-10) #10 tabs naproxen 500 mg tablet (Naprosyn) 500 mg PO BID PRN pa in #20 tabs 03/19/25 Allergies Allergy/AdvReac Type Severity Reaction Status Date / Time No Known Allergies Allergy Verified 01/18/23 21:15
[2025-03-19 11:13] LABS: Basophils % 0.5 %; Eosinophils # 0.1 10^3/uL (0.0-0.8); Hematocrit 41.5 % (36-47); Lymphocytes # 2.3 10^3/uL (0.8-4.8); Lymphocytes % 28.3 %; Mean Corpuscular HGB Conc 32.3 g/dL (30-55); Mean Corpuscular Hemoglobin 29.3 pg (27-33); Mean Corpuscular Volume 90.6 fl (85-98); Mean Platelet Volume 9.7 fL (7.4-10.4); Monocytes # 0.4 10^3/uL (0.2-0.9); Monocytes % 5.2 %; Neutrophils # 5.33 10^3/uL (1.8-7.7); Neutrophils % 64.5 %; Nucleated Red Blood Cells % 0 %; Platelet Count 188 10^3/cmm (157-399); Red Blood Count 4.58 10^6/uL (3.85-5.65); Red Cell Distribution Width 12.9 % (12.1-15.1); White Blood Count 8.26 10^3/uL (3.29-11.43)
[2025-03-19] MEDS: meclizine 25 mg tablet 50 MG PO (11:28)
[2025-03-19] MEDS: ondansetron 2 mg/ML SDV 2 mL 4 MG IVP (11:28)
[2025-03-19] MEDS: ketorolac 30 mg/mL INJ 15 MG IVP (11:28)
[2025-03-19 11:34] VITALS: BP 196/102; PULSE 64; O2SAT 98
[2025-03-19 11:34] LABS: Alanine Aminotransferase 31 U/L (0-33); Albumin Level 3.8 g/dL (3.5-5.2); Alkaline Phosphatase 95 U/L (35-105); Aspartate Amino Transferase 23 U/L (0-32); Blood Urea Nitrogen 17 mg/dL (8-23); Calcium 8.8 mg/dL (8.5-10.5); Carbon Dioxide 28 mmol/L (22-29); Chloride 106 mmol/L (98-107); Creatinine Clr Calc Pharmacy 79.8643; Globulin 3.1 g/dL (1.3-4.6); Glomerular Filtration Rate 71.3 mL/min (90-130); Glucose 118 mg/dL (65-115); Osmolality Calculated 295 mOsm/kg (285-295); Sodium 141 mmol/L (136-145); Total Bilirubin 0.4 mg/dL (0.15-1.2); Total Protein 6.9 g/dL (6.6-8.7)
== END 2025-03-19 12:26 | disposition home or self-care (01) ==
PROVIDERS: Emergency Provider Emergency Medicine; PCP Physician Assistant
DX: S09.8XXA Other specified injuries of head, initial encounter (principal); R51.9 Headache, unspecified; W19.XXXA Unspecified fall, initial encounter
CPT/HCPCS: 70450; 80053; 85025; 96374; 99285; J1885; J2405; J8597

== ENCOUNTER 2025-09-09 09:12 | Outpatient (CLI) | payer MEDICARE, MEDICAID, SELFPAY ==
--- NOTE | 2025-09-09 09:22 | MM_ITS ---
WS: [id number] SCREENING DIGITAL BREAST TOMOSYNTHESIS MAMMOGRAM WITH CAD HISTORY: SCREENING COMPARISON: 03/31/2019 Bilateral CC and MLO with tomosynthesis and synthetic mammography submitted. Computer aided detection analyzed. Breast composition: There are scattered areas of fibroglandular density. The very subtle area of spiculation and increased density in the lateral RIGHT breast seen only on the CC projection. Additional imaging is necessary. No suspicious grouping of calcifications or additional mass identified. MM/MM scr tomosynthesis [id number] IMPRESSION: BI-RADS: 0 - Incomplete: Need additional imaging evaluation. FOLLOW UP: Need Additional Imaging RIGHT breast: Spot compression views (CC ). True ML. Ultrasound to follow if ab normality persists.
== END 2025-09-09 09:13 | disposition home or self-care (01) ==
LOC: RAD 09:13
PROVIDERS: PCP Physician Assistant; Visit Provider Physician Assistant
DX: Z12.31 Encounter for screening mammogram for malignant neoplasm of breast (principal); R92.323 Mammographic fibroglandular density, bilateral breasts; R92.8 Other abnormal and inconclusive findings on diagnostic imaging of breast
CPT/HCPCS: 77063; 77067

== ENCOUNTER 2025-09-28 10:41 | Outpatient (CLI) | payer MEDICARE, MEDICAID, SELFPAY ==
--- NOTE | 2025-09-28 10:45 | MM_ITS ---
WS: [id number] ADDITIONAL VIEWS RIGHT MAMMOGRAM WITH DIGITAL BREAST TOMOSYNTHESIS. HISTORY: ABNORMAL MAMMOGRAM COMPARISON: 09/09/2025 Spot compression views RIGHT breast in CC projection and true ML submitted with digital breast tomosynthesis and SM. Breast composition: There are scattered areas of fibroglandular density. The focal asymmetry seen on the CC projection resolves with additional spot compression views. Ultrasound not necessary. MM/MM diag RT tomosynthesis [id number] IMPRESSION: BI-RADS: 2 - Benign. FOLLOW UP: 1 Year Follow-up Focal asymmetry noted on the CC projection of the screening mammogram completel y resolves with additional imaging. Return to annual screening mammography.
== END 2025-09-28 10:42 | disposition home or self-care (01) ==
LOC: RAD 10:41
PROVIDERS: PCP Physician Assistant; Visit Provider Physician Assistant
DX: Z12.31 Encounter for screening mammogram for malignant neoplasm of breast (principal); N64.89 Other specified disorders of breast; R92.323 Mammographic fibroglandular density, bilateral breasts
CPT/HCPCS: 77061; G0279